=== PATIENT | female | born 1950 | race American Indian/Alaskan Native ===

== ENCOUNTER 2017-10-03 15:31 | Emergency (ER) | payer MEDICARE ==
[2017-10-03 15:32] VITALS: BMI 37.3
[2017-10-03] MEDS ORDERED: Sodium Bicarbonate (8.4%) 50 Meq Syringe ONE (15:32)
[2017-10-03 16:33] LABS: BASO # 0.1 K/uL (0.0-0.2); BASO % 0.9 % (0.0-2.0); EOS % 0.4 % (0.0-4.0); HEMOGLOBIN 9.8 g/dL (11.0-16.0); LYMPH # 2.2 K/uL (1.0-4.3); LYMPH % 25.9 % (20.0-40.0); MEAN CORPUSCULAR HEMOGLOBIN 29.9 pg (27.0-31.0); MEAN CORPUSCULAR HGB CONC 31.1 g/dL (33.0-37.0); MEAN PLATELET VOLUME 12.2 fL (7.2-11.7); MONO # 0.5 K/uL (0.0-0.8); MONO % 5.4 % (0.0-10.0); NEUT # 5.6 K/uL (1.8-7.0); NEUT % 67.4 % (50.0-75.0); NRBC % 0.6 % (0.0-2.0); RBC 3.27 Mil/uL (3.80-5.20); WHITE BLOOD COUNT 8.3 K/uL (4.8-10.8)
[2017-10-03 16:40] LABS: INR 1.4; PROTHROMBIN TIME 15.2 SECONDS (9.7-12.2)
[2017-10-03 17:04] LABS: ALBUMIN 2.6 g/dL (3.5-5.0); CALCIUM 11.4 mg/dl (8.6-10.4); CK-MB 2.07 ng/mL (0.0-3.38); TROPONIN I 0.088 ng/mL (0.00-0.120)
--- NOTE | 2017-10-03 17:34 | C.PDOC ---
Time Seen by Provider: 10/03/17 16:16 Chief Complaint (Nursing): Cardiac Arrest History Per: EMS Reason For Code Blue: Full Arrest Circumstances: Brought To ED By EMS Arrest Witnessed By: Other ([facility] staff) CPR Initiated Prior To MD Arrival?: Yes Down-Time Before ACLS: Unknown Treatment Initiated Prior To MD Arrival: Yes: CPR, BVM Ventilations, IVF, ACLS Medication Initiation, IV Access, Other (Marco tube/I Gel.) Medications Given Prior To MD Arrival: Yes: Epinephrine, Other (Calcium Chloride ) - Initial Findings Mentation: Unresponsive Respirations: None (Assisted) Pulse: None Rhythm: PEA Past Medical History Reviewed: Historical Data, Nursing Documentation, Vital Signs - Medical History PMH: HTN, Malignancy (Renal, metastasis to brain), Seizures - [facility] Procedures BEAM RADIATION OF BRAIN USING PHOTONS 1 - 10 MEV (08/25/17) INSERTION OF INFUSION DEV INTO SUP VENA CAVA, PERC APPROACH (09/16/17) ULTRASONOGRAPHY OF RIGHT UPPER EXTREMITY VEINS, GUIDANCE (09/16/17) Family History: States: Unknown Family Hx - Social History Hx Alcohol Use: No Hx Substance Use: No Review Of Systems Review Of Systems: ROS cannot be obtained secondary to pt's inabilty to answer questions. Physical Exam - Physical Exam Appears: Other (Unresponsive) Skin: Warm, Dry Head: Atraumatic Eye(s): bilateral: Abnormal Pupil (Fixed and dilated) Oral Mucosa: Other (Marco tube in place) Neck: Normal ROM, No Step Off Deformity Chest: Symmetrical Cardiovascular: Other (No heart sounds) Respiratory: Other (Equal breath sounds with bagging) Gastrointestinal/Abdominal: Soft Extremity: No Deformity Neurological/Psych: No Response To Commands Pain Response: No Response To Pain ED Course And Treatment - Laboratory Results Result Diagrams: 10/03/17 16:13 10/03/17 16:13 Progress Note: Marco tube was removed and pt was endotrachialy intubated by me. ACLS protocol was continued with chest compressions, Epinephrine, Atropine, Sodium bicarb, and IV fluids. Pulses were regained briefly, but then pt went into asystole. Pt was pronounced at 16:15. After that pt went back into PEA without any palpable or dopplerable pulses. Code was not restarted due to medical futility. Pt's family (sister) was notified in person. - Physician Consult Information Physician Contacted: Braden Poe (PMD) Outcome Of Conversation: He stated pt had extremely poor prognonsis due to Renal CA with brain mets. She was end-stage and had seizures that were not responding to multiple antiepileptic medications. He had recommended hospice care for her. Endotracheal Intubation - Endotracheal Intubation Intubated With ETT Size: 7 (7.5) Blade Type Used: Curved Indication: Respiratory Failure Intubated: Orally Pre-Intubation Airway Assessment: Need For Airway management Did Not Allow Time Post-Intubation Assessment: Breath Sounds Equal Bilat, Color Change W/End Tidal CO2 Detector Progress - Interventions Interventions:: Observation, Intravenous fluid, Oxygen - Medications Administered Intravenous: Other (Epinephrine. Atropine. Sodium Bicarb. ) - Patient Status Patient status: - Critical Care Citical Care: Excluding Proc Time Critical Care Time: 60 minutes - Continuity of Care Discussed patient case with:: Family-HIPPA compliant, ED Nurse, PMD Disposition - Disposition Disposition: WITH WITHOUT AUTOPSY Disposition Time: 16:15 Condition: - Clinical Impression Clinical Impression: Cardiac arrest
[2017-10-03 17:54] VITALS: RESP 20; O2SAT 100
--- NOTE | 2017-10-07 15:27 | CARD ---
APPROVED REPORT EKG Measurement Heart [id number] <Conclusion> Atrial fibrillation Right bundle branch block Abnormal ECG
== END 2017-10-03 19:39 ==
LOC: C.ER 15:31
DX: I46.9 Cardiac arrest, cause unspecified (principal)
CPT/HCPCS: 31500; 80053; 82948; 84484; 85025; 85610; 85730; 93005; 99291; J0171